=== PATIENT | female | born 2000 | race Caucasian/White ===

== ENCOUNTER → 2021-10-26 | Outpatient (CLI) | payer OTHER ==
--- NOTE | 2021-10-27 12:52 | Diagnostic Imaging Report ---
INDICATION: Right breast pain. TECHNIQUE: Sonographic interrogation of the area of pain in the lateral right breast was performed. FINDINGS: Dense heterogeneous breast tissue is identified throughout the lateral right breast. There is a circumscribed, ovoid hypoechoic solid nodule at the 10 o'clock location of the right breast 3 cm from the nipple measuring 1.4 x 1.2 x 0.6 cm. Features are suggestive of a fibroadenoma. A second smaller nodule adjacent to this measures 0.9 x 0.9 x 0.4 cm. This, too, likely represents a fibroadenoma. No suspicious breast mass is identified. IMPRESSION: There are two circumscribed solid nodules at the 10 o'clock location of the right breast 3 cm from the nipple with features most suggestive of fibroadenomas. A followup right breast ultrasound in 6 months is recommended to show continued stability. ACR BI-RADS Category 3: Probably benign findings. Dictated by: Dictated on workstation # [id number]
== END ==
LOC: RAD 14:15
PROVIDERS: ATTEND Nurse Practitioner Family
DX: N63.11 Unspecified lump in the right breast, upper outer quadrant (principal); N64.4 Mastodynia